=== PATIENT | male | born 1985 | race African-American/Black ===

== ENCOUNTER 2024-01-07 21:57 | Emergency (ER) | payer MEDICAID, OTHER ==
[~2024-01-07] VITALS: Ht 172.7 cm; Wt 73.0 kg
[2024-01-07 22:02] VITALS: O2SAT 99
[2024-01-07] MEDS: CEFTRIAXONE SODIUM 1G VIAL IM ONE (23:34)
[2024-01-07] MEDS: HYDROCODONE/ACETAMINOPHEN 5/325MG TABLET PO ONE (23:34)
[2024-01-07] MEDS: ONDANSETRON 4MG ODT PO ONE (23:34)
[2024-01-07] MEDS: LIDOCAINE HCL 1% 20ML VIAL INFIL ONE (23:34)
[2024-01-07 23:49] LABS: BASOPHILS % 0.3 % (0.0-2.0); EOSINOPHILS % 2.2 % (0.0-5.0); HEMATOCRIT. 41.2 % (42.0-52.0); HEMOGLOBIN. 13.4 g/dL (14.0-18.0); LYMPHOCYTES % 32.9 % (20.0-50.0); MEAN CORPUSCULAR HEMOGLOBIN 32.4 pg (28.0-32.0); MEAN CORPUSCULAR HGB CONC 32.6 g/dL (31.0-37.0); MEAN CORPUSCULAR VOLUME 99.5 fL (80.0-94.0); MEAN PLATELET VOLUME 8.6 fl (7.4-10.4); MONOCYTES % 8.9 % (2.0-8.0); NEUTROPHILS % 55.7 % (40.0-76.0); PLATELET 343 x1000/uL (130-400); RED BLOOD CELL COUNT 4.14 mill/uL (4.7-6.1); RED CELL DISTRIBUTION WIDTH 12.7 % (11.6-14.6); WHITE BLOOD COUNT 10.5 x1000/uL (4.5-11.0)
[2024-01-08 00:09] LABS: CHLORIDE 106 mEq/L (98-107); POTASSIUM 4.2 mEq/L (3.5-5.1); SODIUM 138 mEq/L (136-145)
[2024-01-08 00:10] LABS: CALCIUM 9.7 mg/dL (8.7-10.4); CARBON DIOXIDE 27 mEq/L (21-32)
[2024-01-08 00:15] LABS: CREATININE 1.2 mg/dL (0.6-1.3); GLUCOSE 94 mg/dL (70-105); UREA NITROGEN BLOOD 18 mg/dL (9-23)
[2024-01-08 01:00] VITALS: BP 123/76; PULSE 81; RESP 17; TEMP 36.94740; O2SAT 100
[2024-01-08] MEDS ORDERED: CEFD300C3 MT (01:34)
[2024-01-08] MEDS ORDERED: TOPUD MT (01:34)
[2024-01-08] MEDS ORDERED: IBUP-2028 MT (01:34)
[2024-01-08] MEDS: KETOROLAC 30MG/ML VIAL IM ONE (01:35)
== END 2024-01-08 01:46 | disposition home or self-care (01) ==
LOC: ER 21:57
DX: J32.2 Chronic ethmoidal sinusitis (principal); H66.92 Otitis media, unspecified, left ear; R59.1 Generalized enlarged lymph nodes; R51.9 Headache, unspecified; J45.909 Unspecified asthma, uncomplicated; Z88.0 Allergy status to penicillin; Z98.890 Other specified postprocedural states
CPT/HCPCS: 80048; 85025; 85610; 36415; 71045; 96372 ×2; 99285; 70450; 70480; Q0162; J0696; J3490; J1885; Z7610